=== PATIENT | female | born 1995 | race Caucasian/White ===

== ENCOUNTER → 2016-03-03 | Outpatient (CLI) | payer BC ==
[~2016-03-03] MED LIST: NO HOME MEDICATIONS; ZOFRAN4 M1 PO
== END ==
LOC: BHSO 10:51
DX: F41.1 Generalized anxiety disorder (principal)

== ENCOUNTER → 2019-09-24 | Outpatient (CLI) | payer SELFPAY | LOC: COL.RAD | DX: R10.2 Pelvic and perineal pain (principal) ==